=== PATIENT | female | born 1950 | race Caucasian/White ===

== ENCOUNTER 2022-02-04 01:30 | Emergency (ER) | payer MEDICARE, BC ==
[~2022-02-04] VITALS: Ht 160 cm; Wt 77.9 kg
[2022-02-04 02:22] LABS: CLARITY,URINE CLEAR (Clear); COLOR,URINE YELLOW (Yellow); GLUCOSE, URINE NEGATIVE (Neg); KETONES,URINE NEGATIVE (Neg); LEUKOCYTE ESTERASE ,URINE NEGATIVE (Neg); NITRITES, URINE NEGATIVE (Neg); OCCULT BLOOD,URINE TRACE-INTACT (Neg); PH,URINE 5.5 (4.8-8.0); PROTEIN,URINE NEGATIVE (Neg); UROBILINOGEN,URINE 0.2 E.U/dL (0.2-1.0)
[2022-02-04 02:30] LABS: UA COLLECTION TYPE CLN CATCH MIDSTREAM
[2022-02-04 02:31] LABS: BACTERIA,URINE NONE SEEN /HPF (Neg); RBC,URINE 0-2 /HPF (0-2); WBC,URINE 0-4 /HPF (0-4)
[2022-02-04 02:32] LABS: SQUAMOUS EPITHELIAL CELL,UR NONE SEEN /LPF (FEW)
[2022-02-04 02:33] LABS: ALANINE AMINOTRANSFERASE 38 U/L (12-78); ALBUMIN/GLOBULIN RATIO 1.1 (1.1-1.5); ALKALINE PHOSPHATASE 68 IU/L (46-116); ANION GAP 9 (8-16); ASPARTATE AMINO TRANSFERASE 23 U/L (10-37); BILIRUBIN,TOTAL 0.3 MG/DL (0.1-1.0); BLOOD UREA NITROGEN 12 MG/DL (7-18); BUN/CREATININE RATIO 10.9 (6.6-38.0); CALCIUM 9.1 MG/DL (8.5-10.1); CHLORIDE 104 MMOL/L (99-107); GLUCOSE 126 MG/DL (70-104); LIPASE 114 U/L (73-393); POTASSIUM 3.9 MMOL/L (3.5-5.1); SODIUM 140 MMOL/L (135-145); TOTAL CARBON DIOXIDE 27.3 MMOL/L (24-32); TOTAL PROTEIN 7.6 G/DL (6.4-8.2); eGFR 49 ML/MIN
[2022-02-04 02:54] LABS: BASOPHILS % (AUTO) 0.4 % (0-1); EOSINOPHILS # (AUTO) 0.2 X10'3 (0-0.9); EOSINOPHILS % (AUTO) 1.7 % (0-6); HEMATOCRIT 43.4 % (35.0-45.0); HEMOGLOBIN 14.6 g/dl (12.0-16.0); LYMPHOCYTES # (AUTO) 2.8 X10'3 (1.1-4.8); LYMPHOCYTES % (AUTO) 28.5 % (21-51); MEAN CORPUSCULAR HGB CONC 33.6 g/dL (33.0-36.5); MEAN CORPUSCULAR VOLUME 89.5 FL (78-98); MEAN PLATELET VOLUME 8.1 FL (7.4-10.4); MONOCYTES # (AUTO) 0.7 X10'3 (0-0.9); MONOCYTES % (AUTO) 7.5 % (2-12); NEUTROPHILS # (AUTO) 6.1 X10'3 (1.8-7.7); NEUTROPHILS % (AUTO) 61.9 % (42-75); PLATELET COUNT 289 X10'3 (140-440); RED BLOOD COUNT 4.85 X10'6 (4.20-5.60); RED CELL DISTRIBUTION WIDTH 13.3 % (11.5-14.5); WHITE BLOOD COUNT 9.9 X10'3 (4.5-11.0)
--- NOTE | 2022-02-04 04:15 | NUR ---
Patient experienced nausea and one episode of vomiting. She states her pain is a 10 still. Patient awaits an ER bed. Charge nurse advised.
[2022-02-04] MEDS ORDERED: ondansetron 4mg rapidly disintigrating tab PO ONE (05:05)
--- NOTE | 2022-02-04 05:11 | NUR ---
Patient given Zofran 4 mg ODT for nausea. Placed in rm 18. Awaiting .
[2022-02-04] MEDS ORDERED: ondansetron/PF 4mg/2ml inj IV ONE (08:00)
[2022-02-04] MEDS ORDERED: morphine 4 MG/ML inj SYRINge IV ONE (08:00)
[2022-02-04] MEDS ORDERED: normal saline 1000ML IV soln IVB ONE (08:00)
[2022-02-04 10:29] VITALS: BP 130/64
== END 2022-02-04 10:35 | disposition home or self-care (01) ==
LOC: ER 01:31
DX: R10.84 Generalized abdominal pain (principal); R11.2 Nausea with vomiting, unspecified; Z88.6 Allergy status to analgesic agent; Z88.5 Allergy status to narcotic agent
CPT/HCPCS: 36415; 80053; 81001; 83690; 85025; 93005; 96361; 96374; 96375; 99284; J2270; J2405; J7030

== ENCOUNTER 2022-05-07 23:02 | Emergency (ER) | payer MEDICARE, BC ==
[~2022-05-07] VITALS: Ht 160 cm; Wt 78.2 kg
[2022-05-08 00:14] LABS: BASOPHILS # (AUTO) 0.1 X10'3 (0-0.2)
[2022-05-08 00:16] LABS: BASOPHILS % (AUTO) 0.5 % (0-1); EOSINOPHILS # (AUTO) 0.3 X10'3 (0-0.9); EOSINOPHILS % (AUTO) 2.3 % (0-6); HEMATOCRIT 43.4 % (35.0-45.0); HEMOGLOBIN 14.8 g/dl (12.0-16.0); LYMPHOCYTES # (AUTO) 3.3 X10'3 (1.1-4.8); LYMPHOCYTES % (AUTO) 29.3 % (21-51); MEAN CORPUSCULAR HEMOGLOBIN 31.1 PG (27.0-31.0); MEAN CORPUSCULAR HGB CONC 34.1 g/dL (33.0-36.5); MEAN CORPUSCULAR VOLUME 91.4 FL (78-98); MEAN PLATELET VOLUME 8.7 FL (7.4-10.4); MONOCYTES # (AUTO) 0.8 X10'3 (0-0.9); MONOCYTES % (AUTO) 6.7 % (2-12); NEUTROPHILS % (AUTO) 61.2 % (42-75); PLATELET COUNT 197 X10'3 (140-440); RED BLOOD COUNT 4.75 X10'6 (4.20-5.60); RED CELL DISTRIBUTION WIDTH 14.3 % (11.5-14.5); WHITE BLOOD COUNT 11.4 X10'3 (4.5-11.0)
[2022-05-08] MEDS ORDERED: ondansetron/PF 4mg/2ml inj IV ONE (00:20)
[2022-05-08] MEDS ORDERED: morphine 2 MG/ML inj. syringe IV ONE (00:20)
--- NOTE | 2022-05-08 00:25 | NUR ---
PT REPORTS SHE HAS HAD MORPHINE IN THE PAST WITH NO REACTIONS
[2022-05-08 01:08] LABS: ALANINE AMINOTRANSFERASE 36 U/L (12-78); ALBUMIN 3.9 G/DL (3.4-5.0); ALBUMIN/GLOBULIN RATIO 1.2 (1.1-1.5); ALKALINE PHOSPHATASE 48 IU/L (46-116); ANION GAP 12 (8-16); ASPARTATE AMINO TRANSFERASE 25 U/L (10-37); BILIRUBIN,TOTAL 0.4 MG/DL (0.1-1.0); BLOOD UREA NITROGEN 16 MG/DL (7-18); BUN/CREATININE RATIO 17.6 (6.6-38.0); CHLORIDE 102 MMOL/L (99-107); CREATININE 0.91 MG/DL (0.40-0.90); GLUCOSE 93 MG/DL (70-104); LIPASE 94 U/L (73-393); SODIUM 140 MMOL/L (135-145); TOTAL CARBON DIOXIDE 26.3 MMOL/L (24-32); TOTAL PROTEIN 7.2 G/DL (6.4-8.2); eGFR 61 ML/MIN
[2022-05-08] MEDS ORDERED: morphine 4 MG/ML inj SYRINge IV ONE ×2 (01:10→03:45)
--- NOTE | 2022-05-08 01:10 | NUR ---
PT REPORTS THAT SHE IS STILL IN PAIN. I SPOKE TO DR GERMAN WHO GAVE A VO FOR 2MG MORPHINE IV. ORDER REPEATED BACK FOR ACCURACY AND PLACED.
[2022-05-08] MEDS ORDERED: iohexol 350MG/ML 100ml bottle IV ONE (01:20)
[2022-05-08] MEDS ORDERED: normal saline 1000ml 1,000 ML IV ONE (03:45)
[2022-05-08] MEDS ORDERED: levoFLOXACIN-Levaquin 750MG/D5 150 ML IV STA (04:52)
[2022-05-08] MEDS ORDERED: metroNIDAZOLE-Flagyl 500mg/NS 100 ML IV STA (04:52)
[2022-05-08] MEDS ORDERED: pantoprazole 40MG/NS 100ML BAG 100 ML IV ONE (05:47)
[2022-05-08 06:17] LABS: CLARITY,URINE CLEAR (Clear); COLOR,URINE YELLOW (Yellow); GLUCOSE, URINE NEGATIVE (Neg); KETONES,URINE TRACE mg/dl (Neg); LEUKOCYTE ESTERASE ,URINE NEGATIVE (Neg); NITRITES, URINE NEGATIVE (Neg); OCCULT BLOOD,URINE TRACE-INTACT (Neg); PH,URINE 5.5 (4.8-8.0); PROTEIN,URINE NEGATIVE (Neg); UROBILINOGEN,URINE 0.2 E.U/dL (0.2-1.0)
[2022-05-08 06:22] LABS: UA COLLECTION TYPE CLN CATCH MIDSTREAM
[2022-05-08 06:23] LABS: BACTERIA,URINE NONE SEEN /HPF (Neg); MUCUS STRANDS FEW /LPF (Neg); RBC,URINE 0-2 /HPF (0-2); SQUAMOUS EPITHELIAL CELL,UR FEW /LPF (FEW); WBC,URINE NONE SEEN /HPF (0-4)
--- NOTE | 2022-05-08 06:55 | NUR ---
Assumed care of patient after recieving report. MD at bedside, performing bedside ultra sound. Patient denies any abd. pain. Resting quietly.
[2022-05-08 08:18] VITALS: BP 124/56
== END 2022-05-08 08:24 | disposition left against medical advice (07) ==
LOC: ER 23:03
DX: R10.11 Right upper quadrant pain (principal); R10.13 Epigastric pain; Z88.5 Allergy status to narcotic agent; Z88.8 Allergy status to other drugs, medicaments and biological substances
CPT/HCPCS: 36415; 74177; 80053; 81001; 83690; 85025; 93005; 96365; 96375; 96376; 99285; C9113; J2270; J2405; J3490; J7030; Q9967

== ENCOUNTER 2024-10-11 14:50 | Emergency (ER) | payer MEDICARE, BC ==
[~2024-10-11] VITALS: Ht 160 cm; Wt 81.4 kg
[2024-10-11 14:52] VITALS: BP 159/84; PULSE 95; RESP 15; O2SAT 94
[2024-10-11 18:09] VITALS: TEMP 98
== END 2024-10-11 18:11 | disposition home or self-care (01) ==
LOC: ER 14:51
DX: M66.0 Rupture of popliteal cyst (principal); Z88.5 Allergy status to narcotic agent
CPT/HCPCS: 73564; 93971; 99284